=== PATIENT | female | born 1950 ===

== ENCOUNTER → 2018-05-03 14:06 | Outpatient (REF) | payer MEDICARE, OTHER, SELFPAY ==
[2018-05-03 15:08] LABS: Alanine Aminotransferase 26 IU/L (9-52); Albumin 4.8 g/dL (3.5-5.0); Albumin Globulin Ratio 1.5 (1.0-2.8); Alkaline Phosphatase 52 U/L (38-126); Aspartate Aminotransferase 28 IU/L (14-36); BUN Creatinine Ratio 26.3 (6-22); Bilirubin Total 0.8 mg/dL (0.2-1.3); Blood Urea Nitrogen 21 mg/dL (7-17); Calcium 9.7 mg/dL (8.4-10.2); Carbon Dioxide 29 mmol/L (22-32); Chloride 100 mmol/L (98-107); Cholesterol 227 mg/dL (140-199); Estimated Glomerular Filt Rate > 60.0 mL/min (>60); Globulin 3.3 g/dL (1.7-4.1); Glucose 103 mg/dL (80-110); Sodium 140 mmol/L (137-145); Total Protein 8.1 g/dL (6.3-8.2); Triglycerides 90 mg/dL (35-150)
[2018-05-03 15:15] LABS: HEMOLYSIS 32 (0-50)
[2018-05-03 15:25] LABS: HDL Cholesterol 124 mg/dL (40-60); LDL Cholesterol Calculated 85 mg/dL (<100); Potassium 5.4 mmol/L (3.4-5.1)
== END ==
LOC: LAB 14:06
PROVIDERS: Visit Provider Family Medicine
DX: Z13.6 Encounter for screening for cardiovascular disorders (principal); Z13.1 Encounter for screening for diabetes mellitus; Z13.228 Encounter for screening for other metabolic disorders
CPT/HCPCS: 36415; 80053; 80061